=== PATIENT | female | born 1980 | race Caucasian/White ===

== ENCOUNTER → 2018-01-03 07:33 | Outpatient (CLI) | payer OTHER, SELFPAY ==
[2018-01-03 09:08] LABS: Add Manual Diff / Slide Review NO; Basophils Percent Auto 0.9 % (0-2); Eosinophils Percent Auto 1.5 % (2-4); Hematocrit 38.9 % (36-46); Hemoglobin 13.1 g/dL (12.0-16.0); Lymphocytes Percent Auto 22.5 % (25-40); Mean Corpuscular HGB Conc 33.8 % (30-36); Mean Corpuscular Hemoglobin 30.8 PG (26-34); Mean Corpuscular Volume 91.4 fL (80-100); Monocytes Percent Auto 7.1 % (3-14); Neutrophils Absolute Auto 6500 /uL (3000-5900); Platelet Count 345 X10^3/uL (150-400); Red Blood Cell Count 4.26 X10^6/uL (4.0-5.2); Red Cell Distribution Width 12.7 % (11.6-14.8); White Blood Cell Count 9.6 X10^3/uL (4.5-11.0)
[2018-01-03 09:41] LABS: Alanine Aminotransferase 24 IU/L (9-52); Albumin 4.1 g/dL (3.5-5.0); Albumin Globulin Ratio 1.5 (1.0-2.8); Alkaline Phosphatase 41 U/L (38-126); Aspartate Aminotransferase 18 IU/L (14-36); BUN Creatinine Ratio 17.1 (6-22); Bilirubin Total 0.5 mg/dL (0.2-1.3); Blood Urea Nitrogen 12 mg/dL (7-17); Calcium 8.9 mg/dL (8.4-10.2); Carbon Dioxide 30 mmol/L (22-32); Chloride 102 mmol/L (98-107); Cholesterol 179 mg/dL (140-199); Estimated Glomerular Filt Rate > 60.0 mL/min (>60); Globulin 2.8 g/dL (1.7-4.1); Glucose 91 mg/dL (70-100); HDL Cholesterol 56 mg/dL (40-60); HEMOLYSIS < 15 (0-50); LDL Cholesterol Calculated 111 mg/dL (<100); Potassium 3.9 mmol/L (3.4-5.1); Sodium 141 mmol/L (137-145); Total Protein 6.9 g/dL (6.3-8.2); Triglycerides 61 mg/dL (35-150)
[2018-01-03 09:52] LABS: Free T4, Direct Thyroxine 1.03 ng/dL (0.78-2.19)
[2018-01-03 10:05] LABS: Thyroid Stimulating Hormone 3.04 uIU/mL (0.47-4.68)
== END ==
PROVIDERS: PCP Family Medicine; Visit Provider Family Medicine
DX: Z00.00 Encounter for general adult medical examination without abnormal findings (principal)
CPT/HCPCS: 36415; 80053; 80061; 84439; 84443; 85025

== ENCOUNTER → 2018-01-18 16:00 | Outpatient (CLI) | payer OTHER, SELFPAY | PROVIDERS: Family Provider Family Medicine; PCP Family Medicine | DX: Z23 Encounter for immunization (principal) | CPT/HCPCS: 90471; 90686 ==

== ENCOUNTER → 2018-08-25 08:17 | Outpatient (CLI) | payer OTHER, SELFPAY ==
[2018-08-25 09:14] LABS: Add Manual Diff / Slide Review NO; Basophils Absolute Auto 100 /uL (0-100); Eosinophils Absolute Auto 100 /uL (0-450); Eosinophils Percent Auto 1.7 % (2-4); Hematocrit 39.5 % (36-46); Hemoglobin 13.6 g/dL (12.0-16.0); Lymphocytes Absolute Auto 1800 /uL (1100-4500); Lymphocytes Percent Auto 24.8 % (25-40); Mean Corpuscular HGB Conc 34.3 % (30-36); Mean Corpuscular Hemoglobin 30.4 PG (26-34); Mean Corpuscular Volume 88.5 fL (80-100); Monocytes Absolute Auto 500 /uL (0-900); Monocytes Percent Auto 6.2 % (3-14); Neutrophils Absolute Auto 4900 /uL (1500-7000); Neutrophils Percent Auto 66.3 % (50-75); Platelet Count 317 X10^3/uL (150-400); Red Blood Cell Count 4.47 X10^6/uL (4.0-5.2); Red Cell Distribution Width 13.7 % (11.6-14.8); White Blood Cell Count 7.4 X10^3/uL (4.5-11.0)
[2018-08-25 10:12] LABS: Free T3, Triiodothyronine Free 3.27 pg/mL (2.77-5.27); Free T4, Direct Thyroxine 1.08 ng/dL (0.78-2.19)
[2018-08-25 10:25] LABS: Thyroid Stimulating Hormone 2.98 uIU/mL (0.47-4.68)
[2018-08-25 10:30] LABS: Ferritin 15.9 ng/mL (6.27-137)
[2018-08-25 11:00] LABS: Folate 10.9 ng/mL (2.76-20.0); Vitamin B12 450 pg/mL (239-931)
== END ==
PROVIDERS: Family Provider Family Medicine; PCP Family Medicine; Visit Provider Naturopath
DX: R53.83 Other fatigue (principal); E03.9 Hypothyroidism, unspecified
CPT/HCPCS: 36415; 82607; 82728; 82746; 84439; 84443; 84481; 85025

== ENCOUNTER → 2019-01-03 13:47 | Outpatient (CLI) | payer OTHER, SELFPAY | PROVIDERS: PCP Family Medicine | DX: Z23 Encounter for immunization (principal) | CPT/HCPCS: 90471; 90686 ==

== ENCOUNTER → 2019-01-30 07:34 | Outpatient (CLI) | payer OTHER, SELFPAY ==
[2019-01-30 08:29] LABS: Add Manual Diff / Slide Review NO; Basophils Absolute Auto 100 /uL (0-100); Basophils Percent Auto 1.2 % (0-2); Eosinophils Absolute Auto 100 /uL (0-450); Eosinophils Percent Auto 1.8 % (2-4); Hematocrit 40.4 % (36-46); Hemoglobin 13.5 g/dL (12.0-16.0); Lymphocytes Absolute Auto 2100 /uL (1100-4500); Lymphocytes Percent Auto 27.1 % (25-40); Mean Corpuscular HGB Conc 33.5 % (30-36); Mean Corpuscular Hemoglobin 30.1 PG (26-34); Mean Corpuscular Volume 89.9 fL (80-100); Monocytes Absolute Auto 500 /uL (0-900); Monocytes Percent Auto 6.1 % (3-14); Neutrophils Absolute Auto 4800 /uL (1500-7000); Neutrophils Percent Auto 63.8 % (50-75); Platelet Count 342 X10^3/uL (150-400); White Blood Cell Count 7.6 X10^3/uL (4.5-11.0)
[2019-01-30 08:45] LABS: Alanine Aminotransferase 10 IU/L (<35); Albumin 4.5 g/dL (3.5-5.0); Albumin Globulin Ratio 1.5 (1.0-2.8); Alkaline Phosphatase 50 U/L (38-126); Aspartate Aminotransferase 16 IU/L (14-36); BUN Creatinine Ratio 18.3 (6-22); Bilirubin Total 0.6 mg/dL (0.2-1.3); Blood Urea Nitrogen 11 mg/dL (7-17); Calcium 9.3 mg/dL (8.4-10.2); Carbon Dioxide 27 mmol/L (22-32); Chloride 103 mmol/L (98-107); Cholesterol 190 mg/dL (140-199); Estimated Glomerular Filt Rate > 60.0 mL/min (>60); Globulin 3.1 g/dL (1.7-4.1); Glucose 97 mg/dL (70-100); HDL Cholesterol 48 mg/dL (40-60); HEMOLYSIS < 15 (0-50); LDL Cholesterol Calculated 128 mg/dL (<100); Potassium 3.6 mmol/L (3.4-5.1); Sodium 138 mmol/L (137-145); Total Protein 7.6 g/dL (6.3-8.2); Triglycerides 69 mg/dL (35-150)
[2019-01-30 09:02] LABS: Vitamin D 25 Hydroxy (D3) 38.5 ng/mL (30.0-100.0)
[2019-01-30 09:17] LABS: Thyroid Stimulating Hormone 1.91 uIU/mL (0.47-4.68)
== END ==
PROVIDERS: PCP Family Medicine; Visit Provider Family Medicine
DX: Z00.00 Encounter for general adult medical examination without abnormal findings (principal); E55.9 Vitamin D deficiency, unspecified
CPT/HCPCS: 36415; 80053; 80061; 82306; 84443; 85025

== ENCOUNTER → 2019-05-01 11:02 | Outpatient (CLI) | payer OTHER, SELFPAY ==
[2019-05-01 13:34] LABS: Free T3, Triiodothyronine Free 3.67 pg/mL (2.77-5.27)
== END ==
PROVIDERS: PCP Family Medicine; Referring Provider Naturopath; Visit Provider Naturopath
DX: E03.9 Hypothyroidism, unspecified (principal); R53.83 Other fatigue
CPT/HCPCS: 36415; 84439; 84481

== ENCOUNTER → 2019-11-24 13:28 | Outpatient (CLI) | payer OTHER, SELFPAY ==
--- NOTE | 2019-11-24 15:29 | DI.MG.S_ITS ---
Patient Name: HUI HANSON date: 1980 Sex: F Attending Physician: Maritza Indications: Date: 11/24/2019 15:27 At the request of: SUSAN SALAS Procedure: MM screening mammo BI BILATERAL DIGITAL SCREENING MAMMOGRAM 3D/2D WITH CAD: 11/24/2019 CLINICAL: Routine screening. Family history of breast cancer. Comparison is made to exams dated: 05/30/2015 mammogram, 08/03/2012 mammogram, and 06/17/2012 mammogram - [facility]. The tissue of both breasts is extremely dense, which lowers the sensitivity of mammography. Current study was also evaluated with a Computer Aided Detection (CAD) system. No significant masses, calcifications, or other findings are seen in either breast. There has been no significant interval change. IMPRESSION: NEGATIVE There is no mammographic evidence of malignancy. A 1 year screening mammogram is recommended. This exam was interpreted at Station ID: [id number]. NOTE: For mammograms, a report in lay terms will be sent to the patient. Approximately 15% of breast malignancies will not be visualized mammographically. In the management of a palpable breast mass, a negative mammogram must not discourage biopsy of a clinically suspicious lesion. Electronically Signed By: Danny dale/shorty:11/24/2019 17:39:56 copy to: Susan Salas letter sent: Normal Exam ACR BI-RADS Category 1: Negative 3341F
== END ==
PROVIDERS: PCP Family Medicine; Referring Provider Family Medicine; Visit Provider Family Medicine
DX: Z12.31 Encounter for screening mammogram for malignant neoplasm of breast (principal); Z80.3 Family history of malignant neoplasm of breast
CPT/HCPCS: 77063; 77067

== ENCOUNTER → 2020-01-11 01:40 | Outpatient (CLI) | payer OTHER, SELFPAY | PROVIDERS: PCP Family Medicine; Referring Provider Internal Medicine; Visit Provider Internal Medicine | DX: Z23 Encounter for immunization (principal) | CPT/HCPCS: 90471; 90686 ==

== ENCOUNTER → 2020-03-08 14:52 | Outpatient (CLI) | payer OTHER, SELFPAY ==
--- NOTE | 2020-03-08 | DI.MG.S_ITS ---
UNILATERAL RIGHT DIGITAL DIAGNOSTIC MAMMOGRAM 3D/2D: 03/08/2020 CLINICAL: Right breast lump. Comparison is made to exams dated: 11/24/2019 mammogram, 05/30/2015 mammogram, and 08/03/2012 mammogram - [facility]. The tissue of right breast is extremely dense, which lowers the sensitivity of mammography. There is an oval equal density focal asymmetry with an indistinct margin in the right breast at 11 o'clock anterior depth. This correlates as palpated. No other significant masses or calcifications are seen in the breast. IMPRESSION: INCOMPLETE: NEEDS ADDITIONAL IMAGING EVALUATION The oval equal density focal asymmetry in the right breast is indeterminate. An ultrasound is recommended. Future imaging is recommended as follows: 11/24/2020 screening mammogram. This exam was interpreted at Station ID: [id number]. NOTE: For mammograms, a report in lay terms will be sent to the patient. Approximately 15% of breast malignancies will not be visualized mammographically. In the management of a palpable breast mass, a negative mammogram must not discourage biopsy of a clinically suspicious lesion. Electronically Signed By: Dominick river/shorty:03/08/2020 15:26:07 copy to: Susan ROSE BI-RADS Category 0: Incomplete 3340F
--- NOTE | 2020-03-08 | DI.US.S_ITS ---
LIMITED ULTRASOUND OF RIGHT BREAST AND AXILLA: 03/08/2020 CLINICAL: Palpable right breast lump. palpable to tech and pt-- marked on mammo. Comparison is made to exams dated: 03/08/2020 mammogram and 11/24/2019 mammogram - [facility]. Color flow and real-time ultrasound of the right breast 12 o'clock, and axilla regions were performed on the areas of interest. There is a 1.1 cm x 0.9 cm x 1.1 cm oval mass with an indistinct and circumscribed margin in the right breast at 12 o'clock middle depth. This oval mass is hypoechoic. This correlates as palpated. Color flow imaging demonstrates that there is vascularity present. No significant enlarged lymph nodes were seen sonographically in the right axilla. IMPRESSION: SUSPICIOUS OF MALIGNANCY The 1.1 cm x 0.9 cm x 1.1 cm oval mass in the right breast is suspicious of malignancy. An ultrasound guided biopsy is recommended. The findings were discussed with the patient at the conclusion of the study by Dr. Blue. This exam was interpreted at Station ID: [id number]. Electronically Signed By: Dominick Marte M.D. ddjustin/:03/08/2020 17:31:19 copy to: Susan Salas letter sent: Biopsy Required Ultrasound BI-RADS: 4 Suspicious for malignancy
== END ==
PROVIDERS: PCP Family Medicine; Referring Provider Family Medicine; Visit Provider Family Medicine
DX: R92.8 Other abnormal and inconclusive findings on diagnostic imaging of breast (principal); N63.15 Unspecified lump in the right breast, overlapping quadrants
CPT/HCPCS: 76642; 77065; G0279

== ENCOUNTER → 2020-03-20 10:37 | Outpatient (CLI) | payer OTHER, SELFPAY ==
--- NOTE | 2020-03-20 | PATH_ITS ---
[facility] Accession Number: [id number] . 01 Material submitted: . breast - RIGHT BREAST MASS 11:00 2CMFN . 01 Diagnosis: Right Breast Mass, 11 o'clock, 2 cm from Nipple, Biopsy: Fragments of fibroadenoma. Background breast with columnar cell change/columnar cell hyperplasia, focal apocrine metaplasia, focal usual ductal hyperplasia, stromal fibrosis and cystic duct dilatation. Focal microcalcifications associated with benign breast tissue. Negative for atypia, carcinoma in situ and malignancy. MRV 03/25/2020 1805 Local . 01 Electronically signed: . Patricia King MD, Pathologist NPI- [id number] . 01 Gross description: . Received one formalin-filled container, labeled with the patient's name and labeled RT breast biopsy mass 11 o'clock 2 cm FN. The specimen is received with a plastic filter in container, sample loose in container and consists of multiple fragments of luong, soft tissue which range in size from 0.2 x 0.2 x 0.2 cm to 0.7 x 0.3 x 0.3 cm. The specimen is entirely submitted in one cassette. Collection date per container: 03/20/20. Possible collection time per requisition: 12:14. Total fixation time: Approximately 15 hours. ([id number]) /FRR 03/21/2020 0240 Local . 01 Pathologist provided ICD-10: D24.9, N63.0 . 01 CPT . 181470 Performed at: 01 [facility] [address] [place] [address], [place], [place] [id number] MD Dominick Dent MD Phone: [phone]
--- NOTE | 2020-03-20 | DI.US.S_ITS ---
ULTRASOUND GUIDED BIOPSY RIGHT BREAST USING VACUUM DEVICE WITH MARKING DEVICE INSERTED: 03/20/2020 CLINICAL: Right breast mass. PATIENT CONSENT: Risks (minor bleeding, infection, vasovagal reaction and repeat procedure), benefits and alternatives were explained to the patient and written informed consent was obtained. Correlation is made to exams dated: 03/20/2020 mammogram, 03/08/2020 ultrasound, 03/08/2020 mammogram, 11/24/2019 mammogram, 05/30/2015 mammogram, and 06/17/2012 mammogram - [facility]. An ultrasound guided biopsy using real-time ultrasound was performed for the palpable superficial mass located in the right breast at 11 o'clock .The skin was prepped in the usual manner. Local anesthetic was administered to the access site. A small incision was made in the breast. The abnormality was approached from the lateral aspect. A biopsy needle was placed adjacent to the abnormality under ultrasound guidance. Once the needle was documented to be in the correct location, seven specimens were obtained using the Mammotome biopsy system. The patient received additional local anesthetic during the procedure. A clip was inserted into the biopsy cavity. The specimens were sent to the laboratory for pathological analysis. IMPRESSION: ULTRASOUND GUIDED BIOPSY BENIGN Ultrasound guided biopsy of the mass in the right breast at 11 o'clock posterior depth was successful. Pathology indicates benign apocrine metaplasia, usual ductal hyperplasia, fragments of fibroadenoma, cystic dilatation of ducts, columnar cell change, and stromal fibrosis; micro-calcifications are present. Return to annual mammogram screening schedule is recommended (due approximately October 2020). This exam was interpreted at Station ID: [id number]. Cain gay,aty/:04/02/2020 07:35:13
--- NOTE | 2020-03-20 | DI.MG.S_ITS ---
UNILATERAL RIGHT DIGITAL DIAGNOSTIC MAMMOGRAM POST-EXCISIONAL BIOPSY: 03/20/2020 CLINICAL: Right breast mass. Comparison is made to exams dated: 03/08/2020 mammogram, 11/24/2019 mammogram, and 05/30/2015 mammogram - [facility]. The tissue of right breast is extremely dense, which lowers the sensitivity of mammography. There is a marker clip in the appropriate position in the right breast at 11 o'clock .This marker clip placement is at the biopsy site. IMPRESSION: POST PROCEDURE MAMMOGRAM FOR MARKER PLACEMENT There was a successful marker clip placement in the right breast . Future imaging is recommended as follows: 11/24/2020 screening mammogram. This exam was interpreted at Station ID: [id number]. NOTE: For mammograms, a report in lay terms will be sent to the patient. Approximately 15% of breast malignancies will not be visualized mammographically. In the management of a palpable breast mass, a negative mammogram must not discourage biopsy of a clinically suspicious lesion. Electronically Signed By: Cain gay/:03/20/2020 15:23:50 copy to: Susan Salas ACR BI-RADS Category Post-procedure mammogram for marker placement
== END ==
PROVIDERS: PCP Family Medicine; Referring Provider Family Medicine; Visit Provider Family Medicine
DX: D24.1 Benign neoplasm of right breast (principal); N60.81 Other benign mammary dysplasias of right breast; N60.31 Fibrosclerosis of right breast; N60.41 Mammary duct ectasia of right breast
CPT/HCPCS: 19083; 77065

== ENCOUNTER → 2020-04-12 16:47 | Outpatient (CLI) | payer OTHER, SELFPAY ==
[2020-04-12] MEDS: COVID-19 VACC(MODERNA-1)/PF 100 MCG/0.5 ML VIAL IM (16:52)
== END ==
PROVIDERS: PCP Family Medicine; Visit Provider Internal Medicine
DX: Z23 Encounter for immunization (principal)
CPT/HCPCS: 0011A; 91301

== ENCOUNTER → 2020-04-25 07:47 | Outpatient (CLI) | payer OTHER, SELFPAY ==
[2020-04-25 08:46] LABS: Add Manual Diff / Slide Review NO; Basophils Absolute Auto 100 /uL (0-100); Basophils Percent Auto 1.4 % (0-2); Eosinophils Absolute Auto 200 /uL (0-450); Eosinophils Percent Auto 2.7 % (2-4); Hematocrit 38.5 % (36-46); Hemoglobin 12.5 g/dL (12.0-16.0); Lymphocytes Absolute Auto 2100 /uL (1100-4500); Lymphocytes Percent Auto 32.1 % (25-40); Mean Corpuscular HGB Conc 32.5 % (30-36); Mean Corpuscular Hemoglobin 28.9 PG (26-34); Mean Corpuscular Volume 89.1 fL (80-100); Monocytes Absolute Auto 400 /uL (0-900); Monocytes Percent Auto 6.1 % (3-14); Neutrophils Absolute Auto 3700 /uL (1500-7000); Neutrophils Percent Auto 57.7 % (50-75); Platelet Count 413 X10^3/uL (150-400); Red Blood Cell Count 4.32 X10^6/uL (4.0-5.2); White Blood Cell Count 6.5 X10^3/uL (4.5-11.0)
[2020-04-25 08:59] LABS: Alanine Aminotransferase 11 IU/L (<35); Albumin 4.3 g/dL (3.5-5.0); Albumin Globulin Ratio 1.4 (1.0-2.8); Alkaline Phosphatase 45 U/L (38-126); Aspartate Aminotransferase 20 IU/L (14-36); BUN Creatinine Ratio 17.2 (6-22); Bilirubin Total 0.4 mg/dL (0.2-1.3); Blood Urea Nitrogen 11 mg/dL (7-17); Calcium 8.7 mg/dL (8.4-10.2); Carbon Dioxide 32 mmol/L (22-32); Chloride 103 mmol/L (98-107); Cholesterol 200 mg/dL (140-199); Estimated Glomerular Filt Rate > 60.0 mL/min (>60); Glucose 95 mg/dL (70-100); HDL Cholesterol 55 mg/dL (40-60); HEMOLYSIS < 15 (0-50); LDL Cholesterol Calculated 132 mg/dL (<100); Potassium 3.9 mmol/L (3.4-5.1); Sodium 137 mmol/L (137-145); Total Protein 7.3 g/dL (6.3-8.2); Triglycerides 66 mg/dL (35-150)
[2020-04-25 09:29] LABS: Thyroid Stimulating Hormone 3.05 uIU/mL (0.47-4.68)
== END ==
PROVIDERS: PCP Family Medicine; Referring Provider Family Medicine; Visit Provider Family Medicine
DX: Z00.00 Encounter for general adult medical examination without abnormal findings (principal); F41.1 Generalized anxiety disorder; E04.9 Nontoxic goiter, unspecified; Z13.0 Encounter for screening for diseases of the blood and blood-forming organs and certain disorders involving the immune mechanism
CPT/HCPCS: 36415; 80053; 80061; 84443; 85025

== ENCOUNTER → 2020-05-10 15:55 | Outpatient (CLI) | payer OTHER, SELFPAY ==
[2020-05-10] MEDS: COVID-19 VACC #2, MRNA(MOD) 100 MCG/0.5 ML VIAL IM (16:00)
== END ==
PROVIDERS: PCP Family Medicine; Visit Provider Internal Medicine
DX: Z23 Encounter for immunization (principal)
CPT/HCPCS: 0012A; 91301

== ENCOUNTER → 2020-05-30 08:18 | Outpatient (CLI) | payer OTHER, SELFPAY ==
[2020-05-30 08:56] LABS: COVID19 -Nasal RAPID Negative (Negative)
== END ==
PROVIDERS: PCP Family Medicine; Visit Provider Nurse Practitioner
DX: Z20.822 Contact with and (suspected) exposure to COVID-19 (principal)
CPT/HCPCS: 87635

== ENCOUNTER → 2021-01-08 17:03 | Outpatient (CLI) | payer OTHER, SELFPAY ==
--- NOTE | 2021-01-08 | DI.MG.S_ITS ---
BILATERAL DIGITAL SCREENING MAMMOGRAM 3D/2D WITH CAD: 01/08/2021 CLINICAL: Routine screening. Family history of breast cancer. Comparison is made to exams dated: 03/20/2020 ultrasound biopsy, 03/20/2020 mammogram, 03/08/2020 mammogram, and 11/24/2019 mammogram - [facility]. The tissue of both breasts is extremely dense, which lowers the sensitivity of mammography. Current study was also evaluated with a Computer Aided Detection (CAD) system. No significant masses, calcifications, or other findings are seen in either breast. There has been no significant interval change. IMPRESSION: NEGATIVE There is no mammographic evidence of malignancy. A 1 year screening mammogram is recommended. This exam was interpreted at Station ID: [id number]. NOTE: For mammograms, a report in lay terms will be sent to the patient. Approximately 15% of breast malignancies will not be visualized mammographically. In the management of a palpable breast mass, a negative mammogram must not discourage biopsy of a clinically suspicious lesion. Electronically Signed By: Dominick river/shorty:01/09/2021 08:29:19 letter sent: Normal Exam ACR BI-RADS Category 1: Negative 3341F
== END ==
PROVIDERS: PCP Family Medicine; Referring Provider Family Medicine; Visit Provider Family Medicine
DX: Z12.31 Encounter for screening mammogram for malignant neoplasm of breast (principal); Z80.3 Family history of malignant neoplasm of breast
CPT/HCPCS: 77063; 77067

== ENCOUNTER → 2021-01-08 | Outpatient (CLI) | payer OTHER, SELFPAY | PROVIDERS: PCP Family Medicine; Referring Provider Internal Medicine; Visit Provider Internal Medicine | DX: Z23 Encounter for immunization (principal) | CPT/HCPCS: 90471; 90686 ==

== ENCOUNTER → 2021-01-21 07:26 | Outpatient (CLI) | payer OTHER, SELFPAY ==
[2021-01-21 08:19] LABS: Add Manual Diff / Slide Review NO; Basophils Absolute Auto 100 /uL (0-100); Eosinophils Absolute Auto 200 /uL (0-450); Eosinophils Percent Auto 2.2 % (2-4); Hematocrit 37.7 % (36-46); Hemoglobin 12.6 g/dL (12.0-16.0); Lymphocytes Absolute Auto 2000 /uL (1100-4500); Lymphocytes Percent Auto 29.5 % (25-40); Mean Corpuscular HGB Conc 33.6 % (30-36); Mean Corpuscular Hemoglobin 29.5 PG (26-34); Mean Corpuscular Volume 87.8 fL (80-100); Monocytes Absolute Auto 500 /uL (0-900); Monocytes Percent Auto 7.2 % (3-14); Neutrophils Absolute Auto 4100 /uL (1500-7000); Neutrophils Percent Auto 60.1 % (50-75); Platelet Count 334 X10^3/uL (150-400); Red Blood Cell Count 4.29 X10^6/uL (4.0-5.2); Red Cell Distribution Width 13.8 % (11.6-14.8); White Blood Cell Count 6.8 X10^3/uL (4.5-11.0)
[2021-01-21 08:38] LABS: Alanine Aminotransferase 9 IU/L (<35); Albumin 4.1 g/dL (3.5-5.0); Albumin Globulin Ratio 1.5 (1.0-2.8); Alkaline Phosphatase 38 U/L (38-126); Aspartate Aminotransferase 15 IU/L (14-36); BUN Creatinine Ratio 19.4 (6-22); Bilirubin Total 0.4 mg/dL (0.2-1.3); Blood Urea Nitrogen 14 mg/dL (7-17); Carbon Dioxide 28 mmol/L (22-32); Chloride 104 mmol/L (98-107); Estimated Glomerular Filt Rate > 60.0 mL/min (>60); Globulin 2.8 g/dL (1.7-4.1); Glucose 93 mg/dL (70-100); HEMOLYSIS < 15 (0-50); Potassium 4.1 mmol/L (3.4-5.1); Sodium 138 mmol/L (137-145); Total Protein 6.9 g/dL (6.3-8.2)
[2021-01-21 08:52] LABS: Free T4, Direct Thyroxine 0.95 ng/dL (0.78-2.19)
[2021-01-21 09:06] LABS: Thyroid Stimulating Hormone 3.09 uIU/mL (0.47-4.68)
[2021-01-21 09:12] LABS: Ferritin 9 ng/mL (6-137)
== END ==
PROVIDERS: PCP Family Medicine; Referring Provider Family Medicine; Visit Provider Family Medicine
DX: R53.83 Other fatigue (principal); F33.0 Major depressive disorder, recurrent, mild; F41.0 Panic disorder [episodic paroxysmal anxiety]; F41.1 Generalized anxiety disorder; Z00.00 Encounter for general adult medical examination without abnormal findings; N60.19 Diffuse cystic mastopathy of unspecified breast
CPT/HCPCS: 36415; 80053; 82306; 82728; 84439; 84443; 85025

== ENCOUNTER → 2021-02-05 15:24 | Outpatient (CLI) | payer OTHER, SELFPAY ==
[2021-02-05 15:53] LABS: COVID19 -Nasal RAPID Negative (Negative)
== END ==
PROVIDERS: PCP Family Medicine; Visit Provider Physician Assistant
DX: Z20.822 Contact with and (suspected) exposure to COVID-19 (principal); J02.9 Acute pharyngitis, unspecified; R11.0 Nausea; R53.83 Other fatigue
CPT/HCPCS: 87635

== ENCOUNTER → 2021-03-19 09:14 | Outpatient (CLI) | payer OTHER, SELFPAY ==
[2021-03-19 11:43] LABS: COVID19 -Nasal RAPID POSITIVE (Negative)
== END ==
PROVIDERS: PCP Family Medicine; Visit Provider Nurse Practitioner Family
DX: Z20.822 Contact with and (suspected) exposure to COVID-19 (principal); R50.9 Fever, unspecified
CPT/HCPCS: 87635

== ENCOUNTER → 2021-06-09 14:52 | Outpatient (CLI) | payer OTHER, SELFPAY ==
[2021-06-09 17:14] LABS: Add Manual Diff / Slide Review NO; Basophils Absolute Auto 100 /uL (0-100); Eosinophils Absolute Auto 100 /uL (0-450); Eosinophils Percent Auto 1.6 % (2-4); Hematocrit 36.1 % (36-46); Hemoglobin 12.2 g/dL (12.0-16.0); Lymphocytes Absolute Auto 2500 /uL (1100-4500); Lymphocytes Percent Auto 33.7 % (25-40); Mean Corpuscular HGB Conc 33.8 % (30-36); Mean Corpuscular Hemoglobin 30.1 PG (26-34); Mean Corpuscular Volume 89.3 fL (80-100); Monocytes Absolute Auto 500 /uL (0-900); Monocytes Percent Auto 6.2 % (3-14); Neutrophils Absolute Auto 4200 /uL (1500-7000); Neutrophils Percent Auto 57.5 % (50-75); Platelet Count 366 X10^3/uL (150-400); Red Blood Cell Count 4.05 X10^6/uL (4.0-5.2); Red Cell Distribution Width 13.8 % (11.6-14.8); White Blood Cell Count 7.3 X10^3/uL (4.5-11.0)
[2021-06-09 18:06] LABS: Ferritin 11 ng/mL (6-137)
[2021-06-09 18:20] LABS: Vitamin B12 444 pg/mL (239-931)
[2021-06-09 20:39] LABS: Thyroid Stimulating Hormone 12.5 uIU/mL (0.47-4.68)
== END ==
PROVIDERS: PCP Family Medicine; Referring Provider Family Medicine; Visit Provider Family Medicine
DX: F33.0 Major depressive disorder, recurrent, mild (principal); F41.1 Generalized anxiety disorder
CPT/HCPCS: 36415; 82607; 82728; 84443; 85025

== ENCOUNTER → 2021-09-02 15:22 | Outpatient (CLI) | payer OTHER, SELFPAY ==
[2021-09-02 16:53] LABS: Free T3, Triiodothyronine Free 2.76 pg/mL (2.77-5.27); Free T4, Direct Thyroxine 1.02 ng/dL (0.78-2.19)
[2021-09-02 17:06] LABS: Thyroid Stimulating Hormone 3.46 uIU/mL (0.47-4.68)
== END ==
PROVIDERS: PCP Family Medicine; Referring Provider Family Medicine; Visit Provider Family Medicine
DX: R94.6 Abnormal results of thyroid function studies (principal)
CPT/HCPCS: 36415; 84439; 84443; 84481

== ENCOUNTER → 2021-12-25 15:45 | Outpatient (CLI) | payer OTHER, SELFPAY ==
[2021-12-25 18:11] LABS: Add Manual Diff / Slide Review NO; Basophils Absolute Auto 100 /uL (0-100); Basophils Percent Auto 0.9 % (0-2); Eosinophils Absolute Auto 200 /uL (0-450); Eosinophils Percent Auto 2.2 % (2-4); Hematocrit 35.8 % (36-46); Hemoglobin 12.3 g/dL (12.0-16.0); Lymphocytes Absolute Auto 2500 /uL (1100-4500); Lymphocytes Percent Auto 30.7 % (25-40); Mean Corpuscular HGB Conc 34.3 % (30-36); Mean Corpuscular Hemoglobin 30.2 PG (26-34); Mean Corpuscular Volume 88.2 fL (80-100); Monocytes Absolute Auto 700 /uL (0-900); Monocytes Percent Auto 8.2 % (3-14); Neutrophils Absolute Auto 4700 /uL (1500-7000); Platelet Count 339 X10^3/uL (150-400); Red Blood Cell Count 4.06 X10^6/uL (4.0-5.2); White Blood Cell Count 8.1 X10^3/uL (4.5-11.0)
[2021-12-25 18:42] LABS: Alanine Aminotransferase 11 IU/L (<35); Albumin 4.3 g/dL (3.5-5.0); Albumin Globulin Ratio 1.3 (1.0-2.8); Alkaline Phosphatase 45 U/L (38-126); Aspartate Aminotransferase 17 IU/L (14-36); BUN Creatinine Ratio 19.2 (6-22); Bilirubin Total 0.2 mg/dL (0.2-1.3); Blood Urea Nitrogen 14 mg/dL (7-17); Calcium 8.9 mg/dL (8.4-10.2); Carbon Dioxide 25 mmol/L (22-32); Chloride 102 mmol/L (98-107); Estimated Glomerular Filt Rate > 60 mL/min (>60); Globulin 3.2 g/dL (1.7-4.1); Glucose 86 mg/dL (70-100); HEMOLYSIS < 15 (0-50); Potassium 3.6 mmol/L (3.4-5.1); Sodium 137 mmol/L (137-145); Total Protein 7.5 g/dL (6.3-8.2)
[2021-12-25 19:16] LABS: Ferritin 7 ng/mL (6-137)
[2021-12-25 19:31] LABS: Free T3, Triiodothyronine Free 3.85 pg/mL (2.77-5.27); Free T4, Direct Thyroxine 1.13 ng/dL (0.78-2.19)
[2021-12-25 19:45] LABS: Thyroid Stimulating Hormone 2.47 uIU/mL (0.47-4.68)
== END ==
PROVIDERS: PCP Family Medicine; Referring Provider Family Medicine; Visit Provider Family Medicine
DX: R94.6 Abnormal results of thyroid function studies (principal); R53.83 Other fatigue; F33.0 Major depressive disorder, recurrent, mild; F41.1 Generalized anxiety disorder; F41.0 Panic disorder [episodic paroxysmal anxiety]
CPT/HCPCS: 36415; 80053; 82728; 84439; 84443; 84481; 85025

== ENCOUNTER → 2022-01-13 15:59 | Outpatient (CLI) | payer OTHER, SELFPAY | PROVIDERS: PCP Family Medicine; Referring Provider Internal Medicine; Visit Provider Internal Medicine | DX: Z23 Encounter for immunization (principal) | CPT/HCPCS: 90471; 90686 ==

== ENCOUNTER → 2022-01-22 17:09 | Outpatient (CLI) | payer OTHER, SELFPAY ==
--- NOTE | 2022-01-22 17:11 | DI.MG.S_ITS ---
BILATERAL DIGITAL SCREENING MAMMOGRAM 3D/2D WITH CAD: 01/22/2022 CLINICAL: Routine screening. Family history of breast cancer. Comparison is made to exams dated: 01/08/2021 mammogram, 11/24/2019 mammogram, and 05/30/2015 mammogram - [facility]. Both breasts are extremely dense, which lowers the sensitivity of mammography (category d />75% glandular tissue). Current study was also evaluated with a Computer Aided Detection (CAD) system. No significant masses, calcifications, or other findings are seen in either breast. There has been no significant interval change. IMPRESSION: NEGATIVE There is no mammographic evidence of malignancy. A 1 year screening mammogram is recommended. Based on Tyrer-Cuzick model (a risk assessment model), the patient's lifetime risk is 26.0% and her 10 year risk is 4.2%. If a patient has an elevated risk, a more comprehensive evaluation should be considered and/or a referral to a genetic counselor. The [place] [employer], [employer], and NCCN Guidelines advise the consideration of Breast MRI as an adjunct to screening mammography in patients whose Lifetime risk to develop breast cancer is 20% or higher. This exam was interpreted at Station ID: [id number]. NOTE: For mammograms, a report in lay terms will be sent to the patient. Approximately 15% of breast malignancies will not be visualized mammographically. In the management of a palpable breast mass, a negative mammogram must not discourage biopsy of a clinically suspicious lesion. Electronically Signed By: Brittany stock/shorty:01/23/2022 08:38:34 letter sent: Normal Exam ACR BI-RADS Category 1: Negative 3341F
== END ==
PROVIDERS: PCP Family Medicine; Referring Provider Family Medicine; Visit Provider Family Medicine
DX: Z12.31 Encounter for screening mammogram for malignant neoplasm of breast (principal); Z80.3 Family history of malignant neoplasm of breast
CPT/HCPCS: 77063; 77067

== ENCOUNTER → 2022-04-28 07:36 | Outpatient (CLI) | payer OTHER, SELFPAY ==
[2022-04-28 09:37] LABS: Add Manual Diff / Slide Review NO; Basophils Absolute Auto 100 /uL (0-100); Basophils Percent Auto 0.7 % (0-2); Eosinophils Absolute Auto 100 /uL (0-450); Eosinophils Percent Auto 1.5 % (2-4); Hematocrit 36.9 % (36-46); Hemoglobin 12.7 g/dL (12.0-16.0); Lymphocytes Absolute Auto 1700 /uL (1100-4500); Lymphocytes Percent Auto 18.7 % (25-40); Mean Corpuscular HGB Conc 34.3 % (30-36); Mean Corpuscular Hemoglobin 30.6 PG (26-34); Mean Corpuscular Volume 89.2 fL (80-100); Monocytes Absolute Auto 700 /uL (0-900); Neutrophils Absolute Auto 6700 /uL (1500-7000); Neutrophils Percent Auto 72.1 % (50-75); Platelet Count 375 X10^3/uL (150-400); Red Blood Cell Count 4.14 X10^6/uL (4.0-5.2); Red Cell Distribution Width 12.9 % (11.6-14.8); White Blood Cell Count 9.3 X10^3/uL (4.5-11.0)
[2022-04-28 09:48] LABS: Alanine Aminotransferase 13 IU/L (<35); Albumin 4.3 g/dL (3.5-5.0); Albumin Globulin Ratio 1.4 (1.0-2.8); Alkaline Phosphatase 47 U/L (38-126); Aspartate Aminotransferase 18 IU/L (14-36); Bilirubin Total 0.4 mg/dL (0.2-1.3); Blood Urea Nitrogen 12 mg/dL (7-17); Calcium 8.6 mg/dL (8.4-10.2); Carbon Dioxide 29 mmol/L (22-32); Chloride 100 mmol/L (98-107); Cholesterol 191 mg/dL (140-199); Estimated Glomerular Filt Rate > 60 mL/min (>60); Glucose 85 mg/dL (70-100); HDL Cholesterol 48 mg/dL (40-60); HEMOLYSIS < 15 (0-50); LDL Cholesterol Calculated 128 mg/dL (<100); Potassium 3.9 mmol/L (3.4-5.1); Sodium 139 mmol/L (137-145); Total Protein 7.3 g/dL (6.3-8.2); Triglycerides 77 mg/dL (35-150)
[2022-04-28 10:25] LABS: Thyroid Stimulating Hormone 3.23 uIU/mL (0.47-4.68)
== END ==
PROVIDERS: PCP Family Medicine; Referring Provider Family Medicine; Visit Provider Family Medicine
DX: Z00.00 Encounter for general adult medical examination without abnormal findings (principal); R94.6 Abnormal results of thyroid function studies
CPT/HCPCS: 36415; 80053; 80061; 84443; 85025

== ENCOUNTER → 2022-05-25 12:19 | Outpatient (CLI) | payer OTHER, SELFPAY ==
--- NOTE | 2022-05-25 12:20 | DI.US.S_ITS ---
PROCEDURE: US PELVIC COMPLETE INDICATIONS: DUB TECHNIQUE: Real-time scanning was performed of the pelvic organs, with image documentation. Additional endovaginal scanning was necessary due to incomplete visualization of the adnexal and endometrial structures by transabdominal scanning. COMPARISON: None. FINDINGS: Uterus: Uterus is anteverted and minimally enlarged in size at 10.3 x 5.3 x 6.3 cm. The myometrium is homogeneous. The endometrium measures 7 mm combined thickness. Along the endometrial stripe, there is an avascular focus seen that measures 14 x 4 x 18 mm. No abnormal vascularity can be seen along the medial stripe. Ovaries: The right ovary measures 2.3 x 3.7 x 2 cm, with a calculated ovarian volume of 9 cc. The left ovary measures 3.3 x 5 x 3.2 cm, with a calculated ovarian volume of 27.6 cc. Within the left ovary, there is a simple cyst seen that measures up to 3.4 cm. The ovaries otherwise have a normal sonographic appearance. Less than 12 follicles can be seen in each ovary. No adnexal masses are seen. Other: No pathologic free abdominal or pelvic fluid. IMPRESSION: Potential endometrial polyp seen measuring 14 x 4 x 18 mm. Differential diagnosis includes clot, however. There is a 3.4 cm left ovarian simple cyst seen. If it would be clinically appropriate, a followup pelvic ultrasound could be considered in 6 weeks to assure resolution/ improvement of both of these findings. We strive to produce accurate, complete, and clear reports of imaging services. To assist us in improving patient care, this report was composed using standard report templates and voice recognition software. Therefore, it may contain abnormal punctuation, insertions and/or omissions. Occasional wrong-word or sound-alike substitutions may occur. Though we review the report and make efforts to correct it, we do recommend that the report be read carefully in proper context to recognize any text inaccuracies. Dictated by: Fawad Cueto M.D. on 05/25/2022 at 12:32 Approved by: Fawad Cueto M.D. on 05/25/2022 at 12:34
== END ==
PROVIDERS: PCP Family Medicine; Referring Provider Family Medicine; Visit Provider Family Medicine
DX: N92.1 Excessive and frequent menstruation with irregular cycle (principal); N83.291 Other ovarian cyst, right side
CPT/HCPCS: 76830; 76856

== ENCOUNTER → 2023-01-18 10:53 | Outpatient (CLI) | payer OTHER, SELFPAY | PROVIDERS: PCP Family Medicine; Referring Provider Family Medicine; Visit Provider Family Medicine | DX: Z23 Encounter for immunization (principal) | CPT/HCPCS: 90471; 90686 ==

== ENCOUNTER → 2023-01-25 16:50 | Outpatient (CLI) | payer OTHER, SELFPAY ==
--- NOTE | 2023-01-25 | DI.MG.S_ITS ---
BILATERAL DIGITAL SCREENING MAMMOGRAM 3D/2D WITH CAD: 01/25/2023 CLINICAL: Routine screening. Family history of breast cancer. Comparison is made to exams dated: 01/22/2022 mammogram, 01/08/2021 mammogram, and 11/24/2019 mammogram - [facility]. Both breasts are extremely dense, which lowers the sensitivity of mammography (category d />75% glandular tissue). Current study was also evaluated with a Computer Aided Detection (CAD) system. There is a stable benign focal asymmetry in the left breast. There also is a biopsy clip in the right breast. No significant masses, calcifications, or other findings are seen in either breast. There has been no significant interval change. IMPRESSION: BENIGN There is no mammographic evidence of malignancy. A 1 year screening mammogram is recommended. Based on Tyrer-Cuzick model (a risk assessment model), the patient's lifetime risk is 38.5% and her 10 year risk is 7.0%. If a patient has an elevated risk, a more comprehensive evaluation should be considered and/or a referral to a genetic counselor. The [place] [employer], [place] [employer], and NCCN Guidelines advise the consideration of Breast MRI as an adjunct to screening mammography in patients whose Lifetime risk to develop breast cancer is 20% or higher. This exam was interpreted at Station ID: [id number]. NOTE: For mammograms, a report in lay terms will be sent to the patient. Approximately 15% of breast malignancies will not be visualized mammographically. In the management of a palpable breast mass, a negative mammogram must not discourage biopsy of a clinically suspicious lesion. Electronically Signed By: David suresh/shorty:01/26/2023 10:11:01 letter sent: Normal Exam ACR BI-RADS Category 2: Benign Finding(s) 3342F
== END ==
PROVIDERS: PCP Family Medicine; Referring Provider Family Medicine; Visit Provider Family Medicine
DX: Z12.31 Encounter for screening mammogram for malignant neoplasm of breast (principal); Z80.3 Family history of malignant neoplasm of breast
CPT/HCPCS: 77063; 77067

== ENCOUNTER → 2023-07-30 10:38 | Outpatient (CLI) | payer OTHER, SELFPAY ==
--- NOTE | 2023-07-30 10:39 | DI.MRI.S_ITS ---
BREAST MRI OF BOTH BREASTS: 07/30/2023 CLINICAL: Family history of breast cancer. Comparison is made to exams dated: 01/25/2023 mammogram, 01/22/2022 mammogram, and 01/08/2021 mammogram - [facility]. PROCEDURE: MR BREAST BI WO/W CON INDICATIONS: Family history of malignant neoplasm of breast TECHNIQUE: The patient was placed prone in a dedicated breast imaging coil. Precontrast axial STIR and 3D FLASH without fat saturation sequences were obtained. Both before and after bolus injection of contrast, sequential 1-minute axial 3D FLASH with fat saturation sequences for 3 time points, with subtraction images and maximum intensity projections (MIP's) generated. Delayed sagittal FLASH images with fat saturation were also obtained. Computer-aided detection, including computer algorithm analysis of MRI image data for lesion detection and characterization, pharmacokinetic analysis, with further physician review for interpretation, was performed. FINDINGS: Image quality: Mild motion artifact. Overall diagnostic. There is moderate background parenchymal enhancement. The breasts are extremely dense. Right breast: In the retroareolar region of the right breast at 12 o'clock, there is a 1.2 centimeter oval mass with circumscribed margins and minimal enhancement. There is a clip associated with this mass. Review of biopsy result from 2019 reveals benign pathology. No other suspicious mass, non-mass enhancement, or focus. Left breast: No suspicious mass, non-mass enhancement, or focus. Miscellaneous: On T2 weighted images, numerous small cysts are present. On precontrast T1 weighted images, multiple regions of intrinsic T1 signal likely representing ectatic ducts with proteinaceous material or complicated cysts. The partially visualized anterior mediastinum and upper abdomen appear unremarkable. IMPRESSION: BENIGN No suspicious mass, non-mass enhancement, or focus in either breast. Oval circumscribed mass in the retroareolar region of the right breast at 12 o'clock had a previously benign biopsy result. Recommend continued annual screening mammogram and supplemental annual screening MRI. BIRADS 2 COMMENT: The imaging literature indicates that a negative contrast breast MRI examination has a high sensitivity and a moderate specificity for detecting and excluding invasive carcinomas to a detection threshold of 3-5 mm; nonetheless, appropriate clinical and mammographic follow-up are recommended. MRI is not sensitive for detecting DCIS (ductal carcinoma in situ) and may not detect large invasive neoplasms that show only minimal enhancement such as mucinous carcinoma. If there are suspicious calcifications or clinically worrisome palpable masses, then biopsy should still be considered. Invasive neoplasms can be hidden by co-existent and benign enhancement caused by mastitis, hormone therapy effects, radiation therapy, , and recent biopsy or surgery. False positive examinations can occur in a number of circumstances, including breasts that have recently been subject to invasive procedures and those that contain atypical ductal hyperplasia, hormonally stimulated glandular tissue, fat necrosis, or radial scars. This exam was interpreted at Station ID: [id number]. Electronically Signed By: Lisandro Berkowitz M.D. lc/:07/30/2023 12:50:23 letter sent: Normal Exam ACR BI-RADS Category 2: Benign Finding(s) 3342F
== END ==
LOC: MRI 10:38
PROVIDERS: PCP Family Medicine; Referring Provider Surgery; Visit Provider Surgery
DX: Z12.39 Encounter for other screening for malignant neoplasm of breast (principal); Z80.3 Family history of malignant neoplasm of breast; R92.30 Dense breasts, unspecified; N63.12 Unspecified lump in the right breast, upper inner quadrant
CPT/HCPCS: 77049

== ENCOUNTER → 2024-01-03 14:21 | Outpatient (CLI) | payer OTHER, SELFPAY | PROVIDERS: PCP Family Medicine; Referring Provider Internal Medicine; Visit Provider Internal Medicine | DX: Z23 Encounter for immunization (principal) | CPT/HCPCS: 90471; 90656 ==

== ENCOUNTER → 2024-04-25 16:55 | Outpatient (CLI) | payer OTHER, SELFPAY ==
--- NOTE | 2024-04-25 16:57 | DI.MG.S_ITS ---
BILATERAL DIGITAL SCREENING MAMMOGRAM 3D/2D WITH CAD: 04/25/2024 CLINICAL: Routine screening. Family history of breast cancer. Comparison is made to exams dated: 07/30/2023 breast MRI, 01/25/2023 mammogram, 01/22/2022 mammogram, and 01/08/2021 mammogram - [facility]. The breasts are extremely dense, which lowers the sensitivity of mammography (category d />75% glandular tissue). Current study was also evaluated with a Computer Aided Detection (CAD) system. There is an oval focal asymmetry in the left breast at 2 o'clock posterior depth. This is increased in size. There also is a possible asymmetry in the left breast middle depth superior region seen on the mediolateral oblique view only. Finding is seen only on tomography. No other significant masses, calcifications, or other findings are seen in either breast. IMPRESSION: INCOMPLETE: NEED ADDITIONAL IMAGING EVALUATION The oval focal asymmetry in the left breast at 2 o'clock posterior depth is indeterminate. A diagnostic mammogram and ultrasound is recommended. The possible asymmetry in the left breast middle depth superior region seen on the mediolateral oblique view only is indeterminate. Additional views with possible ultrasound are recommended. Based on Tyrer-Cuzick model (a risk assessment model), the patient's lifetime risk is 33.1% and her 10 year risk is 6.3%. If a patient has an elevated risk, a more comprehensive evaluation should be considered and/or a referral to a genetic counselor. The [place] [employer], [place] [employer], and NCCN Guidelines advise the consideration of Breast MRI as an adjunct to screening mammography in patients whose Lifetime risk to develop breast cancer is 20% or higher. This exam was interpreted at Station ID: [id number]. NOTE: For mammograms, a report in lay terms will be sent to the patient. Approximately 15% of breast malignancies will not be visualized mammographically. In the management of a palpable breast mass, a negative mammogram must not discourage biopsy of a clinically suspicious lesion. Electronically Signed By: Maulik kirk/shorty:04/26/2024 08:19:16 letter sent: Additional Imaging Needed ACR BI-RADS Category 0: Incomplete: Need Additional Imaging Evaluation
== END ==
LOC: MAMMO 16:56
PROVIDERS: PCP Family Medicine; Referring Provider Family Medicine; Visit Provider Family Medicine
DX: Z12.31 Encounter for screening mammogram for malignant neoplasm of breast (principal); Z80.3 Family history of malignant neoplasm of breast; N64.89 Other specified disorders of breast
CPT/HCPCS: 77063; 77067

== ENCOUNTER → 2024-05-18 09:33 | Outpatient (CLI) | payer OTHER, SELFPAY ==
--- NOTE | 2024-05-18 09:39 | DI.US.S_ITS ---
LIMITED ULTRASOUND OF LEFT BREAST: 05/18/2024 CLINICAL: Patient returns today to evaluate a focal asymmetry in the left breast. Comparison is made to exams dated: 05/18/2024 mammogram, 04/25/2024 mammogram, 07/30/2023 breast MRI, 01/25/2023 mammogram, 01/22/2022 mammogram, and 01/08/2021 mammogram - [facility]. Color flow and real-time ultrasound of the left breast 2 o'clock and 12 o'clock regions were performed. Fishman scale images of the real-time examination were reviewed. There is a 1 cm cystic mass or cluster of microcysts in the left breast at 12 o'clock middle depth. This finding is hypoechoic with a well-defined boundary and posterior acoustic enhancement. This correlates with mammography findings. Color flow imaging demonstrates that there is no vascularity present. No other suspicious findings in the area. There also is a 1.1 cm oval mass with a circumscribed margin in the left breast at 2 o'clock posterior depth 10 cm from the nipple. This oval mass is hypoechoic with a well-defined boundary and posterior acoustic enhancement. This correlates with mammography findings. Color flow imaging demonstrates that there is vascularity present. IMPRESSION: PROBABLY BENIGN The 1 cm cluster of microcysts in the left breast at 12 o'clock middle depth resembles apocrine metaplasia or a complicated cyst, less likely a fibroadenoma, and is probably benign. The 1.1 cm oval mass in the left breast at 2 o'clock posterior depth most likely is a fibroadenoma and is probably benign. A follow-up left mammogram and an ultrasound in 6 months is recommended to demonstrate stability. The patient will be due for bilateral mammograms at that same visit. Findings and recommendations were conveyed to the patient at time of exam. This exam was interpreted at Station ID: [id number]. Electronically Signed By: Shanika belle/:05/18/2024 15:44:48 letter sent: Followup Recommended ACR BI-RADS Category 3: Probably Benign
--- NOTE | 2024-05-18 09:39 | DI.MG.S_ITS ---
UNILATERAL LEFT DIGITAL DIAGNOSTIC MAMMOGRAM 3D/2D WITH ADDITIONAL VIEWS: 05/18/2024 CLINICAL: Additional evaluation requested from prior study. Comparison is made to exams dated: 04/25/2024 mammogram, 07/30/2023 breast MRI, 01/25/2023 mammogram, and 01/22/2022 mammogram - [facility]. The breasts are extremely dense, which lowers the sensitivity of mammography (category d />75% glandular tissue). There is a 1.2 cm oval equal density focal asymmetry in the left breast at 2 o'clock posterior depth. This is seen in additional views. This is increased in size. There also is a possible irregular high density asymmetry with an indistinct margin in the left breast middle depth superior region seen on the mediolateral oblique view only. Finding is seen only on tomography. This is not seen in additional views. No other significant masses or calcifications are seen in the breast. IMPRESSION: INCOMPLETE: NEED ADDITIONAL IMAGING EVALUATION The 1.2 cm oval equal density focal asymmetry in the left breast at 2 o'clock posterior depth most likely is a cyst or a fibroadenoma but remains indeterminate. An ultrasound is recommended. This was performed immediately following this exam. The possible irregular high density asymmetry in the left breast middle depth superior region seen on the mediolateral oblique view only most likely is fibroglandular tissue but remains indeterminate. An ultrasound is recommended. This was performed immediately following this exam. Based on Tyrer-Cuzick model (a risk assessment model), the patient's lifetime risk is 33.1% and her 10 year risk is 6.3%. If a patient has an elevated risk, a more comprehensive evaluation should be considered and/or a referral to a genetic counselor. The [place] [employer], [employer], and NCCN Guidelines advise the consideration of Breast MRI as an adjunct to screening mammography in patients whose Lifetime risk to develop breast cancer is 20% or higher. This exam was interpreted at Station ID: [id number]. NOTE: For mammograms, a report in lay terms will be sent to the patient. Approximately 15% of breast malignancies will not be visualized mammographically. In the management of a palpable breast mass, a negative mammogram must not discourage biopsy of a clinically suspicious lesion. Electronically Signed By: Shanika belle/:05/18/2024 15:29:40 letter sent: Additional Imaging Needed ACR BI-RADS Category 0: Incomplete: Need Additional Imaging Evaluation
== END ==
PROVIDERS: PCP Family Medicine; Referring Provider Family Medicine; Visit Provider Family Medicine
DX: R92.8 Other abnormal and inconclusive findings on diagnostic imaging of breast (principal); N63.21 Unspecified lump in the left breast, upper outer quadrant; N60.02 Solitary cyst of left breast; R92.343 Mammographic extreme density, bilateral breasts
CPT/HCPCS: 76642; 77065; G0279

== ENCOUNTER → 2024-06-28 06:37 | Outpatient (CLI) | payer OTHER, SELFPAY ==
[2024-06-28 09:01] LABS: Add Manual Diff / Slide Review NO; Basophils Absolute Auto 100 /uL (0-100); Basophils Percent Auto 1.1 % (0-2); Eosinophils Absolute Auto 100 /uL (0-450); Eosinophils Percent Auto 1.5 % (2-4); Hematocrit 37.1 % (36-46); Hemoglobin 12.4 g/dL (12.0-16.0); Lymphocytes Absolute Auto 2000 /uL (1100-4500); Lymphocytes Percent Auto 24.6 % (25-40); Mean Corpuscular HGB Conc 33.5 % (30-36); Mean Corpuscular Hemoglobin 28.7 PG (26-34); Mean Corpuscular Volume 85.6 fL (80-100); Monocytes Absolute Auto 600 /uL (0-900); Monocytes Percent Auto 7.5 % (3-14); Neutrophils Absolute Auto 5400 /uL (1500-7000); Neutrophils Percent Auto 65.3 % (50-75); Platelet Count 342 X10^3/uL (150-400); Red Blood Cell Count 4.33 X10^6/uL (4.0-5.2); Red Cell Distribution Width 14.7 % (11.6-14.8); White Blood Cell Count 8.2 X10^3/uL (4.5-11.0)
[2024-06-28 09:21] LABS: Alanine Aminotransferase 14 IU/L (<35); Albumin 4.4 g/dL (3.5-5.0); Albumin Globulin Ratio 1.7 (1.0-2.8); Alkaline Phosphatase 47 U/L (38-126); Aspartate Aminotransferase 17 IU/L (14-36); BUN Creatinine Ratio 18.3 (6-22); Bilirubin Total 0.5 mg/dL (0.2-1.3); Blood Urea Nitrogen 13 mg/dL (7-17); Calcium 9.4 mg/dL (8.4-10.2); Carbon Dioxide 25 mmol/L (22-32); Chloride 104 mmol/L (98-107); Cholesterol 231 mg/dL (140-199); Estimated Glomerular Filt Rate > 60 mL/min (>60); Globulin 2.6 g/dL (1.7-4.1); Glucose 99 mg/dL (70-100); HDL Cholesterol 63 mg/dL (40-60); HEMOLYSIS < 15 (0-50); LDL Cholesterol Calculated 149 mg/dL (<100); Potassium 4.3 mmol/L (3.4-5.1); Sodium 136 mmol/L (137-145); Triglycerides 96 mg/dL (35-150)
[2024-06-28 09:50] LABS: Thyroid Stimulating Hormone 2.75 uIU/mL (0.47-4.68)
== END ==
PROVIDERS: PCP Family Medicine; Referring Provider Family Medicine; Visit Provider Family Medicine
DX: Z13.220 Encounter for screening for lipoid disorders (principal); Z13.6 Encounter for screening for cardiovascular disorders; R79.89 Other specified abnormal findings of blood chemistry
CPT/HCPCS: 36415; 80053; 80061; 84443; 85025

== ENCOUNTER → 2024-12-22 11:56 | Outpatient (CLI) | payer OTHER, SELFPAY ==
--- NOTE | 2024-12-22 11:57 | DI.MG.S_ITS ---
US breast LT limited, MM diagnostic mammo unilat LT: 12/22/2024 BI-RADS: 4A CLINICAL: 44-year old female for left diagnostic mammogram and left diagnostic breast ultrasound that is a follow-up to ultrasound, left on 05/18/2024. [facility] lifetime risk of 38.8%. Current reported family history of breast cancer: paternal grandmother and mother. The patient had prior bilateral breast biopsies. PRIOR EXAMS: 05/18/2024, 04/25/2024, 07/30/2023, 01/25/2023, 01/22/2022, 01/08/2021, 03/20/2020, 03/08/2020, 11/24/2019, 05/30/2015. MAMMOGRAPHY TECHNIQUE: 2D and 3D (tomosynthesis) digital mammographic views obtained, with additional images as needed for full coverage. Current study was also evaluated with a Computer Aided Detection (CAD) system. ULTRASOUND TECHNIQUE Real-time cash scale and color doppler imaging of the area of clinical interest was performed with image documentation. Left targeted breast ultrasound of the area of clinical interest and the axilla was performed with image documentation. DENSITY Left: C. The breast is heterogeneously dense, which may obscure small masses. MAMMOGRAPHY FINDINGS Left (finding-1): Upper Outer at 2:00, Posterior depth, measuring 1.2cm - previously measuring (05/18/2024) 1cm: Correlating with prior imaging concern there is a circumscribed, oval, equal-density mass present. ULTRASOUND FINDINGS Left (finding-1): Upper Outer at 2:00, 10 cm from nipple, measuring 1.3 x 1.1 x 0.7 cm - previously measuring (05/18/2024) 1.1 x 0.9 x 0.6 cm: Correlating with findings on mammogram there is an oval, circumscribed, hypoechoic mass that is parallel. Left: Upper at 12:00, 3 cm from nipple, measuring 0.8 x 1.1 x 0.5 cm - previously measuring (05/18/2024) 0.8 x 1 x 0.4 cm: There is an oval, circumscribed, hypoechoic mass that is parallel. This is likely a fibroadenoma. Doppler shows no vascularity. Left: Upper at 12:00, 2 cm from nipple, measuring 0.7 x 0.7 x 0.4 cm: There is an oval, circumscribed, hypoechoic mass that is parallel. This is likely a fibroadenoma. This is an incidental finding. IMPRESSION: Left (Mass): Upper Outer at 2:00, 10 cm from nipple, measuring 1.3 x 1.1 x 0.7 cm - previously measuring (05/18/2024) 1.1 x 0.9 x 0.6 cm * Low Suspicion for Malignancy. Left (Mass): Upper at 12:00, 3 cm from nipple, measuring 0.8 x 1.1 x 0.5 cm - previously measuring (05/18/2024) 0.8 x 1 x 0.4 cm * Probably Benign. Left (Mass): Upper at 12:00, 2 cm from nipple, measuring 0.7 x 0.7 x 0.4 cm * Probably Benign. RECOMMENDATIONS Left: Upper at 12:00, 3 cm from nipple * Six month followup with diagnostic mammography and diagnostic ultrasound. When the patient returns for short-term unilateral followup, a mammogram for the contralateral breast will also be due. Left: Upper Outer at 2:00, 10 cm from nipple * Ultrasound-guided biopsy for further evaluation (The patient is also considering excisional biopsy of the mass instead of image-guided biopsy. Recommend referral to breast surgery as appropriate). Left: Upper at 12:00, 2 cm from nipple * Six month followup with diagnostic ultrasound. COMMENTS: Findings and recommendations regarding the biopsy were conveyed to the patient during today's evaluation over the phone by Dr. Hastings. OVERALL ASSESSMENT CATEGORY BI-RADS-4: Suspicious. ELECTRONICALLY SIGNED: Domonique Hastings M.D. on 12/22/2024 at 04:17:15 PM PT Interpreting Station ID: [id number]
== END ==
LOC: MAMMO 11:56
PROVIDERS: PCP Family Medicine; Referring Provider Family Medicine; Visit Provider Family Medicine
DX: R92.8 Other abnormal and inconclusive findings on diagnostic imaging of breast (principal); N63.21 Unspecified lump in the left breast, upper outer quadrant; N63.25 Unspecified lump in the left breast, overlapping quadrants; R92.332 Mammographic heterogeneous density, left breast; Z80.3 Family history of malignant neoplasm of breast
CPT/HCPCS: 76642; 77065; G0279